=== PATIENT | male | born 1965 | race Caucasian/White ===

== ENCOUNTER 2017-07-04 05:10 | Emergency (ER) | payer OTHER ==
[2017-07-04] MEDS ORDERED: LIDOCAINE 35 APPL TUBE TP ONE ×2 (05:48→05:49)
[2017-07-04 06:16] VITALS: BP 170/90
--- NOTE | 2017-07-04 06:26 | ERNOTE ---
Medical Problem HPI - General Chief Complaint: General Assessment Time Seen by Provider: 07/04/17 05:28 Source: patient Exam Limitations: no limitations - Immun/Allergies/Home Medications Immunizations: IMMUNIZATION HX Immunizations Up to Date Yes History of Influenza Vaccine No Hx Pneumococcal Vaccination No Allergies/Adverse Reactions: Allergies No Known Allergies Allergy (Verified 07/04/17 05:22) Home Medications: HOME MEDICATIONS Amitriptyline HCl [Amitriptyline (Elavil)] 25 mg PO DAILY 01/09/13 [Last Taken Unknown] Furosemide [Lasix] 20 mg PO DAILY 01/09/13 [Last Taken Unknown] Gabapentin [Neurontin (Gabapentin)] 300 mg PO TID 01/09/13 [Last Taken Unknown] Indomethacin 50 mg PO TID PRN 01/09/13 [Last Taken Unknown] Lisinopril [Zestril] 20 mg PO DAILY 01/09/13 [Last Taken Unknown] Metoprolol Succinate [Toprol Xl] 200 mg PO DAILY 01/09/13 [Last Taken Unknown] Probenecid 500 mg PO DAILY 01/09/13 [Last Taken Unknown] Simvastatin [Zocor] 20 mg PO HS 01/09/13 [Last Taken Unknown] metFORMIN HCL [Glumetza] 500 mg PO BID 01/09/13 [Last Taken Unknown] - History of Present History Narrative: Pt having rectal pain that began last night just before bedtime Timing: constant Review of Systems - Review of Systems Constitutional: Absent: recent illness Gastrointestinal/Abdominal: Present: See HPI. Absent: nausea, vomiting, diarrhea, constipation, abdominal pain Genitourinary: Absent: frequency, pain Musculoskeletal: Present: no symptoms reported Hematologic/Lymphatic: Absent: easy bruising, easy bleeding - Patient's Past Medical History Patient History - Medical: Anxiety, Diabetes Type 2 Patient History - Cardiac/Respiratory: Hypertension Patient History - Cancer: No Hx of Cancer Patient History - Surgical Procedures: Back Surgery Patient History - Other: None - Family History Father Family History - Medical: , Diabetes Type 2 Family History - Cardiac/Respiratory: Coronary Heart Disease Mother Family History - Cardiac/Respiratory: Coronary Heart Disease, COPD, Hypertension - Social History Living Situations: home Abuse History: No History of abuse Psych History: Hx of Anxiety Smoking Status: Former smoker Have you smoked in the past 12 months: No Alcohol Use: none Drug Use: none - Immunizations Immunizations Up to Date: Yes Hx Pneumococcal Vaccination: No History of Influenza Vaccine: No Physical Exam - Physical Exam General Appearance: Present: wd/wn, alert, no apparent distress Head Exam: Present: normal inspection Respiratory: Present: no respiratory distress, no accessory muscle use Rectal Exam: Present: normal rectal tone, tenderness, hemorrhoids - on left side swollen but soft externally. Upon digital rectal exam the internal edge of the swollen hemorrhoid is firm/ thrombosed. Male Genitals Exam: Present: normal genitalia Back Exam: Present: normal inspection, no vertebral tenderness Extremity Exam: Present: normal inspection, normal range of motion Neurological Exam: Present: alert, oriented, normal mood/affect, no motor/ sensory deficits Skin Exam: Present: normal color, warm/dry Lymphatic Exam: Present: no adenopathy ED Progress - Vital Signs Vital Signs: Vital Signs 07/04/17 05:14 Temperature 36.0 C L Pulse Rate 65 Respiratory 18 Rate Blood Pressure 190/98 O2 Sat by Pulse 95 Oximetry - Progress/Reassessment Chief Complaint: General Assessment Progress Note-Subjective: 07/04/17 06:06 Given hand written Rx for topical nifedipine and lidocaine ointment and sitz bath kit. Discussed medical therapy with the patient and if not much improved over the weekend he should see his PCP for further treatment. Departure Clinical Impression: Thrombosed external hemorrhoids - Departure Disposition: Home Follow Up Needed Condition: Good Instructions: Hemorrhoids, [id number] Additional Instructions: Use medications as directed. Use warm sits baths 5-6 times a day. See your regular doctor if not improving over the weekend. Referrals: Guillermina Patricio MD [Primary Care Provider] -
== END 2017-07-04 06:15 | disposition home or self-care (01) ==
LOC: ER 05:10
DX: K64.5 Perianal venous thrombosis (principal); E11.9 Type 2 diabetes mellitus without complications; I10 Essential (primary) hypertension; F41.9 Anxiety disorder, unspecified